=== PATIENT | female | born 1975 | race Caucasian/White ===

== ENCOUNTER 2016-08-20 16:43 | Emergency (ER) | payer OTHER ==
[2016-08-20 16:44] VITALS: BMI 29.5
--- NOTE | 2016-08-20 17:58 | C.PDOC ---
History Of Present Illness 40 y/o F c PMHx anemia p/w chest pain x 1.5 weeks. Pain is L sided, like pressure, radiating to L shoulder. Patient notes that prior to this, she was lifting heavy things at her work. She denies fever, dyspnea, vomiting, leg swelling. Time Seen by Provider: 08/20/16 17:33 Chief Complaint (Nursing): Chest Pain Past Medical History Vital Signs: Last Vital Signs Temp 98.6 F 08/20/16 16:57 Pulse 87 08/20/16 18:52 Resp 18 08/20/16 16:57 BP 145/97 H 08/20/16 16:57 Pulse Ox 96 08/20/16 17:59 - Medical History PMH: Anemia Surgical History: Coronary Stent Family History: States: No Known Family Hx - Social History Hx Alcohol Use: No Hx Substance Use: No - Immunization History Hx Tetanus Toxoid Vaccination: No Hx Influenza Vaccination: No Hx Pneumococcal Vaccination: No Review Of Systems Except As Marked, All Systems Reviewed And Found Negative. Constitutional: Negative for: Fever Cardiovascular: Positive for: Chest Pain Physical Exam - Physical Exam Additional Physical Exam Comments: Constitutional: No acute distress. Head: Normocephalic. Atraumatic. Eyes: PERRL. EOMI ENT: Moist mucous membranes. Neck: Supple. Cardiovascular: Regular rate. Radial pulses 2+ bilaterally. Chest: Reproducible tenderness and reproducible pain with pectoral muscle use. Respiratory: Clear to auscultation bilaterally. GI: Soft. Nontender. Nondistended. Back: No CVA tenderness. No midline tenderness. Musculoskeletal: No tenderness or swelling of extremities. Skin: No rash. Neurologic: Alert, no focal deficit. ED Course And Treatment - Laboratory Results Result Diagrams: 08/20/16 18:53 08/20/16 18:53 O2 Sat by Pulse Oximetry: 96 Medical Decision Making Medical Decision Making: EKG shows NSR at 87 bpm, no ST/T wave changes. Patient with likely MSK pain. 1 set to rule out ACS in pain of 1.5 weeks duration. Patient with known anemia. Will provide with copy of labs at patient's request as her PMD will send her for iron infusion she states. Otherwise, enzymes negative. CXR shows no infiltrate or consolidation. Disposition - Disposition Disposition: HOME/ ROUTINE Disposition Time: 19:28 Condition: STABLE Instructions: Chest Wall Pain (ED) - Clinical Impression Clinical Impression: Chest wall pain
[2016-08-20 18:57] LABS: BASO # 0.1 K/uL (0.0-0.2); EOS # 0.4 K/uL (0.0-0.7); EOS % 6.3 % (0.0-4.0); HEMATOCRIT 26.9 % (34.0-47.0); LYMPH # 1.9 K/uL (1.0-4.3); LYMPH % 30.3 % (20.0-40.0); MEAN CELL VOLUME 56.3 fL (81.0-99.0); MEAN CORPUSCULAR HEMOGLOBIN 16.2 pg (27.0-31.0); MEAN CORPUSCULAR HGB CONC 28.8 g/dL (33.0-37.0); MEAN PLATELET VOLUME 8.7 fL (7.2-11.7); MONO # 0.4 K/uL (0.0-0.8); MONO % 5.6 % (0.0-10.0); RED CELL DISTRIBUTION WIDTH 20.5 % (11.5-14.5); WHITE BLOOD COUNT 6.3 K/uL (4.8-10.8)
[2016-08-20 19:09] LABS: CHLORIDE 100 mmol/L (98-107)
[2016-08-20 19:10] LABS: POTASSIUM 3.9 mmol/L (3.6-5.2); SODIUM 138 mmol/L (132-148)
[2016-08-20 19:12] LABS: ALB/GLOB RATIO 1.1 (1.0-2.1); ALKALINE PHOSPHATASE 63 U/L (38-126); AST/SGOT 26 U/L (14-36); BILIRUBIN,TOTAL 0.2 mg/dL (0.2-1.3); BLOOD UREA NITROGEN 11 mg/dL (7-17); CARBON DIOXIDE 23 mmol/L (22-30); GFR AFRICAN-AMERICAN > 60; TOTAL PROTEIN 8.1 g/dL (6.3-8.3)
[2016-08-20 19:13] LABS: ALT/SGPT 24 U/L (9-52); CALCIUM 8.7 mg/dl (8.6-10.4); GLUCOSE,RANDOM 102 mg/dL (65-105)
[2016-08-20 19:39] VITALS: BP 125/81; PULSE 73; RESP 16; TEMP 98.1; O2SAT 100
--- NOTE | 2016-08-21 08:43 | RAD ---
HISTORY: chest pain COMPARISON: 05/08/2014 TECHNIQUE: Chest PA and lateral FINDINGS: LUNGS: No focal infiltrate or effusion. Again identified is a radiopaque lobulated density projecting over the aorta of uncertain clinical etiology. Not significantly changed since the prior study. PLEURA: No significant pleural effusion identified. No pneumothorax apparent. CARDIOVASCULAR: Normal. OSSEOUS STRUCTURES: No significant abnormalities. VISUALIZED UPPER ABDOMEN: Normal. OTHER FINDINGS: None. IMPRESSION: No focal infiltrate or effusion. Again identified is a radiopaque lobulated density projecting over the aorta of uncertain clinical etiology. Not significantly changed since the prior study.
--- NOTE | 2016-08-21 23:13 | CARD ---
APPROVED REPORT EKG Measurement Heart [id number] <Conclusion> Normal sinus rhythm Minimal voltage criteria for LVH, may be normal variant Borderline ECG
== END 2016-08-20 19:39 | disposition home or self-care (01) ==
LOC: C.ER 16:43
DX: R07.89 Other chest pain (principal)